=== PATIENT | female | born 1985 | race Caucasian/White ===

== ENCOUNTER → 2016-04-28 | Outpatient (CLI) | payer OTHER | LOC: M OUTALCOH 07:57 | PROVIDERS: ATTEND Psychiatry & Neurology Psychiatry | DX: Z03.89 Encounter for observation for other suspected diseases and conditions ruled out (principal) ==

== ENCOUNTER 2018-05-05 01:14 | Emergency (ER) | payer MEDICAID, SELFPAY ==
[~2018-05-05] VITALS: Ht 177.8 cm; Wt 77.3 kg
[2018-05-05 01:15] VITALS: BP 193/117
[2018-05-05] MEDS ORDERED: PHENobarbital 30 MG TAB PO ONE (02:15)
== END 2018-05-05 03:13 | disposition home or self-care (01) ==
LOC: M ED 01:14
DX: F11.20 Opioid dependence, uncomplicated (principal)

== ENCOUNTER → 2018-08-24 | Outpatient (REF) | payer OTHER, MEDICAID ==
[2018-08-24 21:23] LABS: CHLAMYDIA DNA AMPLIFICATION NEGATIVE (NEGATIVE); GC DNA AMPLIFICATION NEGATIVE (NEGATIVE)
[2018-08-28 00:07] LABS: HPV HYBRID CAPTURE II HI RISK Negative (Negative); HPV HYBRID CAPTURE II LOW RISK Negative (Negative)
== END ==
LOC: M LAB REF 18:49
PROVIDERS: ATTEND Family Medicine Addiction Medicine
DX: Z12.4 Encounter for screening for malignant neoplasm of cervix (principal)

== ENCOUNTER 2018-09-17 13:15 | Inpatient (IN) | payer MEDICAID, OTHER ==
[~2018-09-17] VITALS: Ht 177.8 cm; Wt 95.6 kg
[2018-09-17 13:47] LABS: HEMATOCRIT 40.6 % (36.0-47.0); HEMOGLOBIN 13.7 g/dl (12.0-15.5); MEAN CORPUSCULAR HGB CONC 33.7 g/dl (32.0-36.5); MEAN CORPUSCULAR VOLUME 97.8 fl (80.0-96.0); PLATELET COUNT, AUTOMATED 302 10^3/uL (150-450); RED BLOOD COUNT 4.15 10^6/uL (4.00-5.40); WHITE BLOOD COUNT 5.3 10^3/uL (4.0-10.0)
[2018-09-17 14:17] LABS: HCG, SERUM QUALITATIVE NEGATIVE (NEGATIVE)
[2018-09-17 14:23] LABS: ACETAMINOPHEN LEVEL < 2.0 UG/ML (10.0-30.0); ALBUMIN 3.5 GM/DL (3.2-5.2); ALT/SGPT 22 U/L (12-78); BILIRUBIN,DIRECT 0.1 MG/DL (0.0-0.2); BILIRUBIN,TOTAL 0.3 MG/DL (0.2-1.0); BLOOD UREA NITROGEN 16 MG/DL (7-18); CALCIUM LEVEL 9.4 MG/DL (8.5-10.1); CARBON DIOXIDE LEVEL 28 MEQ/L (21-32); CHLORIDE LEVEL 112 MEQ/L (98-107); CREATININE FOR GFR 1.04 MG/DL (0.55-1.30); ETHYL ALCOHOL (ETHANOL) < 0.003 % (0.000-0.010); GLOMERULAR FILTRATION RATE > 60.0 (>60); GLUCOSE, FASTING 97 MG/DL (70-100); SALICYLATE LEVEL 4.1 MG/DL (5.0-30.0); SODIUM LEVEL 144 MEQ/L (136-145); THYROID STIMULATING HORMONE 0.679 uIU/ML (0.358-3.740); TOTAL PROTEIN 7.9 GM/DL (6.4-8.2)
[2018-09-17 15:15] LABS: AMPHETAMINES LEVEL URINE NEGATIVE (NEGATIVE); BARBITURATES URINE NEGATIVE (NEGATIVE); BENZODIAZEPINES URINE NEGATIVE (NEGATIVE); CANNABINOIDS URINE POSITIVE (NEGATIVE); COCAINE METABOLITE URINE NEGATIVE (NEGATIVE); METHADONE URINE NEGATIVE (NEGATIVE); OPIATES URINE POSITIVE (NEGATIVE); PHENCYCLIDINE URINE NEGATIVE (NEGATIVE)
[2018-09-17] MEDS ORDERED: traZODone 50 MG TAB PO PRN (16:30)
[2018-09-17] MEDS ORDERED: MOM 30ML SUSPENSION UDC PO PRN (16:30)
[2018-09-17] MEDS ORDERED: MAALOX 30 ML SUSP *UDC PO PRN (16:30)
[2018-09-17] MEDS ORDERED: LISI-672 PO (16:38)
[2018-09-17] MEDS ORDERED: REME15TA PO (16:38)
[2018-09-17] MEDS ORDERED: SERT-155 PO (16:38)
[2018-09-17] MEDS ORDERED: TRAZ1TAB14 PO (16:38)
[2018-09-17] MEDS ORDERED: BUSP10TA PO (16:38)
[2018-09-17] MEDS ORDERED: NARC1SPR (16:38)
[2018-09-17 17:37] VITALS: BP 156/106
[2018-09-17] MEDS: ACETAMINOPHEN TAB 650MG DOSE (2X325MG) PO PRN (20:40)
[2018-09-17] MEDS: hydrOXYzine 50 MG TAB PO PRN (21:54)
[2018-09-18 07:03] VITALS: BP 140/86
[2018-09-18] MEDS: ACETAMINOPHEN TAB 650MG DOSE (2X325MG) PO PRN ×2 (08:36→15:15)
[2018-09-18] MEDS: NICOTINE 7 MG/24 HR TRANSDERMAL TD SCH (08:36)
--- NOTE | 2018-09-18 10:47 | HPEPDOC ---
General Date of Admission Sep 17, 2018 at 16:22 Date of Service: Sep 18, 2018 Attending Physician: ANASTASIYA ORELLANA MD Chief Complaint The patient is a 33-year-old female admitted with a reason for visit of Depressive Disorder Substance Abuse. History of Present Illness Patient is a 33-year-old female, admitted on account of acute depressive episode and polysubstance abuse. Prior to presentation for admission, patient had tried to overdose on heroine 2 days ago. had used Narcan on her. Patient has a prior medical history significant for hypertension, controlled by lisinopril. She is uncertain of the dosage. She denies any chest pain, abdominal pain, cough, chest pain, shortness of breath. Home Medications Scheduled Buspirone HCl (Buspirone HCl) 10 Mg Tablet, 10 MG PO TID, (Reported) Lisinopril (Lisinopril) 30 Mg Tablet, 30 MG PO DAILY, (Reported) Mirtazapine (Remeron) 15 Mg Tablet, 15 MG PO QHS, (Reported) Naloxone HCl (Narcan) 4 Mg [place], 4 MG NA ONCE, (Reported) Sertraline HCl (Sertraline HCl) 50 Mg Tablet, 50 MG PO DAILY, (Reported) Trazodone HCl (Trazodone HCl) 150 Mg Tablet, 150 MG PO QHS, (Reported) Allergies Coded Allergies: No Known Allergies (Unverified , 05/05/18) Past Medical History Medical History Hypertension. Suicidal ideation. Depression. Polysubstance abuse Surgical History Cholecystectomy Tonsils and adenoid removal Tubal ligation Family History Father: Diabetes mellitus, hyperlipidemia, hypertension, Parkinson's disease Mother: Diabetes mellitus, hyperlipidemia Social History Smokes half a pack of cigarettes a day, denies alcohol abuse, polysubstance abuse with opiates and THC A-FIB/CHADSVASC A-FIB History Current/History of A-Fib/PAF?: No Current PO Anticoag Therapy: No Review of Systems Other systems A 10 point pertinent review of systems was completed, negative except as stated in the history of presenting illness. Physical Examination Other physical findings GENERAL: NAD SKIN : Warm, dry intact HEENT: Atraumatic, normocephalic, PERRL, moist mucous membrane CARDIOVASCULAR: Regular rate and rhythm, S1S2, no JVD, no edema, distal pulses + and palpable RESP: CTAB, no accessory muscle use noted ABDOMEN: BS+ non distended non tender MS: no joint deformities NEURO: Alert and oriented x 3, CN2-12 grossly intact PSYCH: no anxiety or agitation, appropriate mood and affect. Vital Signs Vital Signs Date Time Temp Pulse Resp B/P (MAP) Pulse Ox O2 Delivery O2 Flow Rate FiO2 09/18/18 07:03 96.7 72 14 140/86 (104) 09/17/18 17:37 98 09/17/18 16:12 Room Air Laboratory Data Labs 24H Laboratory Tests 2 09/17/18 13:19: Urine Amphetamines Screen NEGATIVE, Urine Benzodiazepines Screen NEGATIVE, Urine Opiates Screen POSITIVEH, Urine Methadone Screen NEGATIVE, Urine Barbiturates Screen NEGATIVE, Urine Phencyclidine Screen NEGATIVE, Urine Cocaine Metabolite Screen NEGATIVE, Urine Cannabinoids Screen POSITIVEH 09/17/18 13:34: Nucleated Red Blood Cells % (auto) 0.0, Anion Gap 4L, Glomerular Filtration Rate > 60.0, Calcium Level 9.4, Aspartate Amino Transf (AST/SGOT) 13, Alanine Aminotransferase (ALT/SGPT) 22, Alkaline Phosphatase 101, Total Bilirubin 0.3, Direct Bilirubin 0.1, Total Protein 7.9, Albumin 3.5, Albumin/Globulin Ratio 0.80L, Thyroid Stimulating Hormone (TSH) 0.679, Human Chorionic Gonadotropin, Qual NEGATIVE, Salicylates Level 4.1L, Acetaminophen Level < 2.0L, Ethyl Alcohol Level < 0.003 CBC/BMP Laboratory Tests 09/17/18 13:34 Red Blood Count 4.15, Mean Corpuscular Volume 97.8 H, Mean Corpuscular Hemogl obin 33.0, Mean Corpuscular Hemoglobin Concent 33.7, Red Cell Distribution Width 14.4 Assessment/Plan Hypertension Suicidal ideation Depression. Polysubstance abuse Nicotine dependence PLAN Restart patient on lisinopril for control of blood pressure. At this time patient has no medical problems requiring active follow-up and management. Reconsult medical team as needed Plan / VTE VTE Prophylaxis Ordered?: No VTE Exclusion Mechanical Proph: Low Risk for VTE ANDREA MATHIS [employer] AND [employer] CRAFTSMAN Sep 18, 2018 10:47
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
[2018-09-18 12:09] VITALS: BP 150/98
[2018-09-18] MEDS: SERTRALINE 100 MG TAB PO SCH (12:11)
[2018-09-18] MEDS: LISINOPRIL 10 MG TAB PO SCH (12:12)
[2018-09-18] MEDS: busPIRone 10 MG TAB PO SCH ×3 (12:12→21:34)
[2018-09-18] MEDS: hydrOXYzine 50 MG TAB PO PRN (16:45)
[2018-09-18 18:00] VITALS: BP 132/84
[2018-09-18] MEDS: MIRTAZAPINE 15 MG TAB PO SCH (21:33)
[2018-09-18] MEDS: traZODone 50 MG TAB PO SCH (21:34)
[2018-09-19 06:44] VITALS: BP 132/84
[2018-09-19] MEDS: NICOTINE 7 MG/24 HR TRANSDERMAL TD SCH (08:08)
[2018-09-19] MEDS: busPIRone 10 MG TAB PO SCH ×3 (08:08→20:20)
[2018-09-19] MEDS: SERTRALINE 100 MG TAB PO SCH (08:08)
[2018-09-19] MEDS: LISINOPRIL 10 MG TAB PO SCH (08:08)
[2018-09-19] MEDS: ACETAMINOPHEN TAB 650MG DOSE (2X325MG) PO PRN ×2 (08:09→15:47)
[2018-09-19] MEDS ORDERED: LISINOPRIL 10 MG TAB PO SCH (09:00)
[2018-09-19] MEDS ORDERED: LISINOPRIL 5 MG TAB PO SCH (09:00)
[2018-09-19] MEDS: hydrOXYzine 50 MG TAB PO PRN (11:45)
--- NOTE | 2018-09-19 14:39 | MHIPNPDOC ---
[facility] Progress Note Progress Note DATE OF SERVICE: 09/19/18 HISTORY: 33-year-old female being treated for depression, anxiety and complaints of back pain. VITAL SIGNS: See below. NEW TEST RESULTS: None. CURRENT MEDICATIONS: See below. MENTAL STATUS EXAMINATION: Patient is a 33-year old female, who is . Presently presenting with anxiety, dep ression, who made an overdose on heroin due to her depression. She has been, according to her not taking any drugs since June Speech: Is normal. Language skills are, intact. Thought processes including:. Denies hallucinations, delusions, obsessions, compulsions, phobias. Thought content: Above. Abstract reasoning, and computation:, Able to abstract. Description of associations:. No loose associations. Description of abnormal or psychotic thoughts:. No abnormal or psychotic thought. Judgment:. Fair. Insight:, Fair. Orientation: Oriented 3. Recent and remote memory:, Intact. Attention span and concentration:. No abnormalities. Language: As above. Fund of knowledge:. Full. Mood: Anxious. Affect:, Congruent. DIAGNOSES: 1.. Depression/anxiety. 2., Opiate dependence abuse treated in rehabilitation. 3. Back pain. ASSESSMENT: Above MANAGEMENT PLAN:. Continue to treat for depression and evaluate whether patient needs more rehabilitation for drug use. TIME SPENT:, 35 minutes. Vital Signs Vital Signs Date Time Temp Pulse Resp B/P (MAP) Pulse Ox O2 Delivery O2 Flow Rate FiO2 09/19/18 08:08 130/94 09/19/18 06:44 99.7 57 18 09/17/18 17:37 98 09/17/18 16:12 Room Air Current Medications Current Medications Acetaminophen (Tylenol Tab) 650 mg Q6HP PRN PO HEADACHE or DISCOMFORT Last administered on 09/19/18at 08:09; Start 09/17/18 at 16:30 Al Hydrox/Mg Hydrox/Simethicone (Mylanta) 30 ml Q4HP PRN PO HEARTBURN /INDIGESTION; Start 09/17/18 at 16:30 Buspirone HCl (Buspar) 20 mg TID PO Last administered on 09/19/18at 08:08; Start 09/18/18 at 09:00 Home Med (Med Rec Complete!) ASDIRECTED XX ; Start 09/17/18 at 16:45; Stop 09/17/18 at 16:45; Status DC Hydroxyzine HCl (Atarax) 50 mg Q4HP PRN PO ANXIETY Last administered on 09/19/18 11:45; Start 09/17/18 at 21:30 Lisinopril (Prinivil) 5 mg DAILY PO ; Start 09/19/18 at 09:00; Stop 09/19/18 at 09:00; Status DC Lisinopril (Prinivil) 30 mg DAILY PO Last administered on 09/19/18at 08:08; Start 09/18/18 at 11:30 Lisinopril (Prinivil) 30 mg DAILY PO ; Start 09/19/18 at 09:00; Stop 09/19/18 at 09:00; Status DC Magnesium Hydroxide (Milk Of Magnesia) 30 ml DAILYPRN PRN PO CONSTIPATION; Start 09/17/18 at 16:30 Mirtazapine (Remeron) 15 mg QHS PO Last administered on 09/18/18at 21:33; Start 09/18/18 at 21:00 Nicotine (Nicoderm Cq 7 Mg) 1 patch DAILY TD Last administered on 09/19/18at 08:08; Start 09/18/18 at 09:00 Sertraline HCl (Zoloft) 100 mg DAILY PO Last administered on 09/19/18at 08:08; Start 09/18/18 at 09:00 Trazodone HCl (Desyrel) 50 mg QHSP PRN PO INSOMNIA Last administered on 09/17/18at 20:40; Start 09/17/18 at 16:30; Stop 09/18/18 at 11:20; Status DC Trazodone HCl (Desyrel) 150 mg QHS PO Last administered on 09/18/18at 21:34; Start 09/18/18 at 21:00 Allergies Coded Allergies: No Known Allergies (Unverified , 05/05/18) JOSPEH YAO MD Sep 19, 2018 14:39
[2018-09-19] MEDS: hydrOXYzine 50 MG TAB PO SCH ×2 (15:47→20:20)
[2018-09-19 18:00] VITALS: BP 130/80
[2018-09-19] MEDS ORDERED: KETOROLAC 30 MG/ML VIAL (J1885) IM ONE (19:00)
[2018-09-19] MEDS: MIRTAZAPINE 15 MG TAB PO SCH (20:20)
[2018-09-19] MEDS: traZODone 50 MG TAB PO SCH (20:20)
[2018-09-20] MEDS: hydrOXYzine 50 MG TAB PO SCH ×4 (04:00→23:04)
[2018-09-20 06:12] VITALS: BP 130/80
[2018-09-20] MEDS: LISINOPRIL 10 MG TAB PO SCH (08:31)
[2018-09-20] MEDS: SERTRALINE 100 MG TAB PO SCH (08:31)
[2018-09-20] MEDS: ACETAMINOPHEN TAB 650MG DOSE (2X325MG) PO PRN (08:31)
[2018-09-20] MEDS: busPIRone 10 MG TAB PO SCH ×3 (08:31→20:26)
[2018-09-20] MEDS: NICOTINE 7 MG/24 HR TRANSDERMAL TD SCH (08:32)
[2018-09-20] MEDS ORDERED: hydrOXYzine 50 MG TAB PO PRN (13:00)
[2018-09-20] MEDS ORDERED: IBUPROFEN 800 MG TAB PO PRN (13:45)
[2018-09-20] MEDS ORDERED: CYCLOBENZAPRINE 5MG TABLET PO PRN (13:45)
--- NOTE | 2018-09-20 16:26 | MHIPNPDOC ---
[facility] Progress Note Progress Note DATE OF SERVICE: 09/20/18 HISTORY: HISTORY OF THE PRESENT ILLNESS: Patient is a 33 -year-old , female, who who states, "I attempt to kill myself." Patient states I don't want to live. She stated she states she saw a doctor Burak at the [facility], and that she has been on Zoloft, BuSpar, Atarax, lisinopril and trazodone and mirtazapine. She states she had not improved and "they did nothing for me". Patient tried 3 days ago to overdose on heroin. gave her Narcan, which brought her back since June. Patient has been sober having come out of rehabilitation. After she overdosed her children were taken away from her. They are 1917 and 14. In the past. Patient has used Celexa. She. She was in rehabilitation from May to June. Her medical history is negative surgical history is positive for gallbladder removal tonsils and adenoids and tubal ligation. She has no legal problems except that her children are now with CPS. Her neurological history is negative. She has a 10th grade education. She has a [employer] license but it has lapsed. Her who used to work as a it administrative assistant and did repairs at [place] is now unemployed. Her family history is positive that her mother had used drugs. Her alcohol history is negative. Her drug history is positive for heroin and marijuana. She denies hallucinations, delusions, obsessions, compulsions or phobias. VITAL SIGNS: See below. NEW TEST RESULTS: See below. CURRENT MEDICATIONS: See below. MENTAL STATUS EXAMINATION: Speech: normal. Language skills: intact. Thought processes including: Denies hallucinations, delusions, obsessions, compulsions, phobias. Thought content: Above. Abstract reasoning, and computation: Able to abstract. Description of associations: No loose associations. Description of abnormal or psychotic thoughts: No abnormal or psychotic thought. Judgment: Fair. Insight: Fair. Orientation: Oriented 3. Recent and remote memory: Intact. Attention span and concentration: No abnormalities. Language: As above. Fund of knowledge: Full. Mood: Anxious. Affect: Congruent. DIAGNOSES: 1. Depression/anxiety. 2. Opiate dependence abuse treated in rehabilitation. 3. Back pain. ASSESSMENT: Patient says she overdosed on heroin because she was told that she needed to attempt suicide in order to be committed. We told her this was not the case. Patient says her medications were not high enough and they were not working for her. She says she tried telling her therapists however, the message never got passed along to the prescribing provider so she did what she thought would get her help. She is denying any thoughts of harming herself today. She only complains of the back pain, which she is getting a C, T, and L spine MRI to night. She says she has been sober since June and this relapse was only as a way to get inpatient treatment and that she has no cravings or any plans to continue using drugs upon discharge. MANAGEMENT PLAN: Patient will receive a dose of toradol prior to MRIs. Patient will also start gabapentin 300 mg TID for neuropathic pain. Renal functions will be assessed tomorrow morning. Continue medications and group therapy. TIME SPENT: 30 minutes. Vital Signs Vital Signs Date Time Temp Pulse Resp B/P (MAP) Pulse Ox O2 Delivery O2 Flow Rate FiO2 09/20/18 08:31 150/90 09/20/18 06:12 98.6 63 16 09/17/18 17:37 98 09/17/18 16:12 Room Air Current Medications Current Medications Acetaminophen (Tylenol Tab) 650 mg Q6HP PRN PO HEADACHE or DISCOMFORT Last administered on 09/20/18at 08:31; Start 09/17/18 at 16:30 Al Hydrox/Mg Hydrox/Simethicone (Mylanta) 30 ml Q4HP PRN PO HEARTBURN/INDIGESTION; Start 09/17/18 at 16:30 Buspirone HCl (Buspar) 20 mg TID PO Last administered on 09/20/18at 16:13; Start 09/18/18 at 09:00 Cyclobenzaprine HCl (Flexeril) 5 mg Q6HP PRN PO SPASMS Last administered on 09/20/18at 14:38; Start 09/20/18 at 13:45 Gabapentin (Neurontin) 300 mg TID PO ; Start 09/20/18 at 16:00; Status UNV Home Med (Med Rec Complete!) ASDIRECTED XX ; Start 09/17/18 at 16:45; Stop 09/17/18 at 16:45; Status DC Hydroxyzine HCl (Atarax) 50 mg Q4H PO Last administered on 09/20/18 08:31; Start 09/19/18 at 16:00; Stop 09/20/18 at 12:56; Status DC Hydroxyzine HCl (Atarax) 50 mg Q4HP PRN PO ANXIETY Last administered on at 11:45; Start 09/17/18 at 21:30; Stop 09/19/18 at 14:40; Status DC Hydroxyzine HCl (Atarax) 50 mg Q4HP PRN PO ANXIETY; Start 09/20/18 at 13:00 Ibuprofen (Advil) 800 mg Q8HP PRN PO MODERATE PAIN (PS 5-7) Last administered on 09/20/18at 14:38; Start 09/20/18 at 13:45; Status Future hold Lisinopril (Prinivil) 5 mg DAILY PO ; Start 09/19/18 at 09:00; Stop 09/19/18 at 09:00; Status DC Lisinopril (Prinivil) 30 mg DAILY PO Last administered on 09/20/18at 08:31; Start 09/18/18 at 11:30 Lisinopril (Prinivil) 30 mg DAILY PO ; Start 09/19/18 at 09:00; Stop 09/19/18 at 09:00; Status DC Magnesium Hydroxide (Milk Of Magnesia) 30 ml DAILYPRN PRN PO CONSTIPATION; Start 09/17/18 at 16:30 Mirtazapine (Remeron) 15 mg QHS PO Last administered on 09/19/18at 20:20; Start 09/18/18 at 21:00 Nicotine (Nicoderm Cq 7 Mg) 1 patch DAILY TD Last administered on 09/20/18at 08:32; Start 09/18/18 at 09:00 Sertraline HCl (Zoloft) 100 mg DAILY PO Last administered on 09/20/18at 08:31; Start 09/18/18 at 09:00 Trazodone HCl (Desyrel) 50 mg QHSP PRN PO INSOMNIA Last administered on 09/17/18at 20:40; Start 09/17/18 at 16:30; Stop 09/18/18 at 11:20; Status DC Trazodone HCl (Desyrel) 150 mg QHS PO Last administered on 09/19/18at 20:20; Start 09/18/18 at 21:00 Allergies Coded Allergies: No Known Allergies (Unverified , 05/05/18) GME ATTESTATION GME ATTESTATION My faculty preceptor for this patient encounter was physically present during the encounter and was fully available. All aspects of the patient interview, examination, medical decision making process, and medical care plan development were reviewed and approved by the faculty preceptor. The faculty preceptor is aware and concurs with the plan as stated in the body of this note and will attest to such by his/her cosignature. YOLANDA WEINBERG DO Sep 20, 2018 16:26
[2018-09-20] MEDS: GABAPENTIN 300 MG CAP PO SCH ×2 (17:01→20:25)
[2018-09-20 18:16] VITALS: BP 150/90
[2018-09-20] MEDS ORDERED: KETOROLAC 30 MG/ML VIAL (J1885) IM ONE (21:19)
[2018-09-20] MEDS ORDERED: PROHANCE 279.3MG/ML 5ML VIAL (A9576) As Ordered ONE (23:12)
[2018-09-20] MEDS ORDERED: PROHANCE 279.3MG/ML 15ML VIAL (A9576) As Ordered ONE (23:12)
[2018-09-21] MEDS: MIRTAZAPINE 15 MG TAB PO SCH ×2 (00:05→22:52)
[2018-09-21] MEDS: traZODone 50 MG TAB PO SCH ×2 (00:05→22:53)
--- NOTE | 2018-09-21 01:01 | REPVR ---
EXAM: MR Cervical Spine Without and With Contrast EXAM DATE/TIME: 09/20/2018 11:25 PM CLINICAL HISTORY: 33 years old, female; Neck pain; Patient HX: HX SUBSTANCE ABUSE, CHRONIC PAIN IN ENTIRE SPINE NKI; Additional Info: R/O abscess TECHNIQUE: Imaging protocol: Multiplanar magnetic resonance images of the cervical spine without and with intravenous contrast. Contrast material: PROHANCE; Contrast volume: 19 ml; Contrast route: 23 G BUTTERFLY; COMPARISON: No relevant prior studies available. FINDINGS: Limitations: Examination is limited by motion artifact. Vertebrae: Unremarkable. No abnormal enhancing lesions. No suspicious lesions. Spinal cord: Normal signal. No cord compression. C2-C3: No significant disc disease. No significant spinal stenosis. C3-C4: No significant disc disease. No significant spinal stenosis. C4-C5: No significant disc disease. No significant spinal stenosis. C5-C6: No significant disc disease. No significant spinal stenosis. C6-C7: No significant disc disease. No significant spinal stenosis. C7-T1: No significant disc disease. No significant spinal stenosis. Soft tissues: Unremarkable. No abnormal enhancing lesions. IMPRESSION: 1. Limited by motion. 3. No evidence of abscess. Electronically signed by: Keeley Hernandez On 09/21/2018 01:00:47 AM
--- NOTE | 2018-09-21 01:02 | REPVR ---
EXAM: MR Thoracic Spine Without and With Contrast EXAM DATE/TIME: 09/20/2018 11:25 PM CLINICAL HISTORY: 33 years old, female; Pain in thoracic spine; Without myelpathy or radiculopathy; Patient HX: HX SUBSTANCE ABUSE, CHRONIC PAIN IN ENTIRE SPINE NKI; Additional Info: R/O abscess TECHNIQUE: Imaging protocol: Multiplanar magnetic resonance images of the thoracic spine without and with intravenous contrast. Contrast material: PROHANCE; Contrast volume: 19 ml; Contrast route: 23G BUTTERFLY; COMPARISON: CR Spine, Thoracic 3 VIEWS 09/20/2013 7:44 PM FINDINGS: Limitations: Examination is limited by motion artifact. Vertebrae: Unremarkable. No abnormal enhancing lesion. Spinal cord: Cord is not well evaluated on the sagittal T2-weighted images. No cord compression. T1-T2: No significant disc disease. No significant spinal stenosis. T2-T3: No significant disc disease. No significant spinal stenosis. T3-T4: No significant disc disease. No significant spinal stenosis. T4-T5: No significant disc disease. No significant spinal stenosis. T5-T6: No significant disc disease. No significant spinal stenosis. T6-T7: No significant disc disease. No significant spinal stenosis. T7-T8: No significant disc disease. No significant spinal stenosis. T8-T9: No significant disc disease. No significant spinal stenosis. T9-T10: No significant disc disease. No significant spinal stenosis. T10-T11: No significant disc disease. No significant spinal stenosis. T11-T12: No significant disc disease. No significant spinal stenosis. Soft tissues: Unremarkable. No abnormal enhancing lesion. IMPRESSION: 1. Limited by motion. 2. No evidence of abscess. Electronically signed by: Keeley Hernandez On 09/21/2018 01:02:19 AM
--- NOTE | 2018-09-21 01:08 | REPVR ---
EXAM: MR Lumbar Spine Without and With Contrast. EXAM DATE/TIME: 09/20/2018 11:25 PM CLINICAL HISTORY: 33 years old, female; Low back pain; Patient HX: HX SUBSTANCE ABUSE, CHRONIC PAIN IN ENTIRE SPINE NKI; Additional Info: R/O abscess TECHNIQUE: Imaging protocol: Multiplanar magnetic resonance images of the lumbar spine without and with intravenous contrast. Contrast material: PROHANCE; Contrast volume: 19 ml; Contrast route: 23G BUTTERFLY; COMPARISON: CR Spine. Lumbosacral, complete 07/06/2013 6:09 PM FINDINGS: Limitations: Examination is limited by motion artifact. Postcontrast images are particularly suboptimal. Vertebrae: Unremarkable. No abnormal enhancing lesions in the vertebra. Mild degenerative changes at the anterior superior corner of L2 and L3. 8mm T2 hyperintense lesion in the L1 vertebral body on the left which partially suppresses on fat-sat images. 5 mm in hemangioma in the L2 vertebral body on the left. Spinal cord: Conus medullaris terminates at L1. No cord compression or compression of the cauda equina. L1-L2: No significant disc disease. No significant spinal stenosis. L2-L3: No significant disc disease. No significant spinal stenosis. L3-L4: No significant disc disease. No significant spinal stenosis. L4-L5: No significant disc disease. No significant spinal stenosis. L5-S1: No significant disc disease. No significant spinal stenosis. Soft tissues: There is dependent subcutaneous edema. No abnormal enhancing lesions in the soft tissue. IMPRESSION: 1. Limited somewhat by motion. 2. No evidence of abscess. 3. Likely hemangiomas in the L1 and L2 vertebral bodies. Electronically signed by: Keeley Hernandez On 09/21/2018 01:08:21 AM
[2018-09-21 06:35] VITALS: BP 138/80
[2018-09-21 07:58] LABS: ALBUMIN 3.4 GM/DL (3.2-5.2); ALT/SGPT 15 U/L (12-78); BILIRUBIN,TOTAL 0.4 MG/DL (0.2-1.0); BLOOD UREA NITROGEN 19 MG/DL (7-18); CALCIUM LEVEL 8.9 MG/DL (8.5-10.1); CARBON DIOXIDE LEVEL 26 MEQ/L (21-32); CHLORIDE LEVEL 113 MEQ/L (98-107); CREATININE FOR GFR 1.08 MG/DL (0.55-1.30); GLOMERULAR FILTRATION RATE > 60.0 (>60); GLUCOSE, FASTING 84 MG/DL (70-100); POTASSIUM SERUM 4.3 MEQ/L (3.5-5.1); SODIUM LEVEL 143 MEQ/L (136-145); TOTAL PROTEIN 6.9 GM/DL (6.4-8.2)
[2018-09-21] MEDS: SERTRALINE 100 MG TAB PO SCH (08:21)
[2018-09-21] MEDS: GABAPENTIN 300 MG CAP PO SCH ×2 (08:21→15:01)
[2018-09-21] MEDS: busPIRone 10 MG TAB PO SCH ×3 (08:21→20:09)
[2018-09-21] MEDS: NICOTINE 7 MG/24 HR TRANSDERMAL TD SCH (08:21)
[2018-09-21] MEDS: LISINOPRIL 10 MG TAB PO SCH (08:21)
--- NOTE | 2018-09-21 10:25 | IPNPDOC ---
Subjective Date Seen The patient was seen on 09/21/18. Subjective Chief Complaint/HPI Admitted to inpatient psych for acute depression with suicidal ideation Events since last encounter MRI findings discussed with her. Negative for acute process to explain severe pain complaints patient has had Objective Physical Examination Other physical findings GENERAL: NAD SKIN : Warm, dry intact HEENT: Atraumatic, normocephalic, PERRL, moist mucous membrane CARDIOVASCULAR: Regular rate and rhythm, S1S2, no JVD, no edema, distal pulses + and palpable RESP: CTAB, no accessory muscle use noted ABDOMEN: BS+ non distended non tender MS: no joint deformities NEURO: Alert and oriented x 3, CN2-12 grossly intact PSYCH: no anxiety or agitation, appropriate mood and affect. Assessment /Plan Assessment Low Back Pain -MRI spine negative for acute vertebral or paravertebral process -will discontinue all NSAIDS and order Lidoderm patch to back -MRI findings discussed with patient Plan/VTE VTE Prophylaxis Ordered?: No VTE Exclusion Mechanical Proph: Low Risk for VTE VS, I&O, 24H, Fishbone Vital Signs/I&O Vital Signs Date Time Temp Pulse Resp B/P (MAP) Pulse Ox O2 Delivery O2 Flow Rate FiO2 09/21/18 08:21 146/88 09/21/18 06:35 98.2 79 16 09/17/18 17:37 98 09/17/18 16:12 Room Air Laboratory Data 24H LABS Laboratory Tests 2 09/21/18 07:14: Anion Gap 4L, Glomerular Filtration Rate > 60.0, Blood Urea Nitrogen 19H, Creatinine 1.08, Sodium Level 143, Potassium Level 4.3, Chloride Level 113H, Carbon Dioxide Level 26, Calcium Level 8.9, Aspartate Amino Transf (AST/SGOT) 8, Alanine Aminotransferase (ALT/SGPT) 15, Alkaline Phosphatase 85, Total Bilirubin 0.4, Total Protein 6.9, Albumin 3.4, Albumin/Globulin Ratio 0.97L CBC/BMP Laboratory Tests 09/21/18 07:14 Calcium Level 8.9, Aspartate Amino Transf (AST/SGOT) 8, Alanine Aminotransferase (ALT/SGPT) 15, Alkaline Phosphatase 85, Total Bilirubin 0.4, Total Protein 6.9, Albumin 3.4 ANDREA MATHIS Sep 21, 2018 10:25
[2018-09-21] MEDS: LIDOCAINE 5% (LIDODERM) PATCH TD SCH (11:05)
--- NOTE | 2018-09-21 16:04 | MHIPNPDOC ---
[facility] [place] Progress Note Progress Note DATE OF SERVICE: 09/21/18 HISTORY: HISTORY OF THE PRESENT ILLNESS: Patient is a 33 -year-old , female, who who states, "I attempt to kill myself." Patient states I don't want to live. She stated she states she saw a doctor Burak at the [facility], and that she has been on Zoloft, BuSpar, Atarax, lisinopril and trazodone and mirtazapine. She states she had not improved and "they did nothing for me". Patient tried 3 days ago to overdose on heroin. gave her Narcan, which brought her back since June. Patient has been sober having come out of rehabilitation. After she overdosed her children were taken away from her. They are 1917 and 14. In the past. Patient has used Celexa. She. She was in rehabilitation from May to June. Her medical history is negative surgical history is positive for gallbladder removal tonsils and adenoids and tubal ligation. She has no legal problems except that her children are now with CPS. Her neurological history is negative. She has a 10th grade education. She has a [employer] license but it has lapsed. Her who used to work as a assistant distribution manager and did repairs at [employer] is now unemployed. Her family history is positive that her mother had used drugs. Her alcohol history is negative. Her drug history is positive for heroin and marijuana. She denies hallucinations, delusions, obsessions, compulsions or phobias. VITAL SIGNS: See below. NEW TEST RESULTS: her BUN w slightly more elevated, went from 16 to 19. Her MRI results are unremarkable but she has some degenerative changes at L2-L3 and possible hemangiomas (small) between L1-L2 CURRENT MEDICATIONS: See below. MENTAL STATUS EXAMINATION: Speech: normal. Language skills: intact. Thought processes including: Denies hallucinations, delusions, obsessions, compulsions, phobias. Thought content: Above. Abstract reasoning, and computation: Able to abstract. Description of associations: No loose associations. Description of abnormal or psychotic thoughts: No abnormal or psychotic thought. Judgment: Fair. Insight: Fair. Orientation: Oriented 3. Recent and remote memory: Intact. Attention span and concentration: No abnormalities. Language: As above. Fund of knowledge: Full. Mood: Anxious. Affect: Congruent. DIAGNOSES: 1. Depression/anxiety. 2. Opiate dependence abuse treated in rehabilitation. 3. Back pain. ASSESSMENT: The mental status has not changed much from yesterday but she is less anxious because her pain level has decreased. She continues to deny suicidal ideation, homicidal ideation or psychosis. She says she has felt better today because she has taken Gabapentin 300 mgs PO TID and will be increased to 400 mgs PO TID. She says she is going to try doing yoga to strengthen her back muscles. She is still very anxious because of her pain problem and this senior writer spoke to her about the rol that anxiety plays with pain and how pain can increase her anxiety, so, if she starts trying to meditate, take deep breathings, she probably will lower her anxiety levels and her pain levels. She tells me she is homeless, she was living with her brother but can't return there because she overdosed and her children have been taken away for the same reason. Being homeless is stressful for her. MANAGEMENT PLAN: Will continue on the same medications TIME SPENT: 30 minutes. Vital Signs Vital Signs Date Time Temp Pulse Resp B/P (MAP) Pulse Ox O2 Delivery O2 Flow Rate FiO2 09/21/18 08:21 146/88 09/21/18 06:35 98.2 79 16 09/17/18 17:37 98 09/17/18 16:12 Room Air Laboratory Data 24H Labs Laboratory Tests 2 09/21/18 07:14: Anion Gap 4L, Glomerular Filtration Rate > 60.0, Blood Urea Nitrogen 19H, Creatinine 1.08, Sodium Level 143, Potassium Level 4.3, Chloride Level 113H, Carbon Dioxide Level 26, Calcium Level 8.9, Aspartate Amino Transf (AST/SGOT) 8, Alanine Aminotransferase (ALT/SGPT) 15, Alkaline Phosphatase 85, Total Bilirubin 0.4, Total Protein 6.9, Albumin 3.4, Albumin/Globulin Ratio 0.97L CBC/BMP Laboratory Tests 09/21/18 07:14 Calcium Level 8.9, Aspartate Amino Transf (AST/SGOT) 8, Alanine Aminotransferase (ALT/SGPT) 15, Alkaline Phosphatase 85, Total Bilirubin 0.4, Total Protein 6.9, Albumin 3.4 Current Medications Current Medications Acetaminophen (Tylenol Tab) 650 mg Q6HP PRN PO HEADACHE or DISCOMFORT Last administered on 09/20/18at 08:31; Start 09/17/18 at 16:30 Al Hydrox/Mg Hydrox/Simethicone (Mylanta) 30 ml Q4HP PRN PO HEARTBURN/INDIGESTION; Start 09/17/18 at 16:30 Buspirone HCl (Buspar) 20 mg TID PO Last administered on 09/21/18at 15:01; Start 09/18/18 at 09:00 Cyclobenzaprine HCl (Flexeril) 5 mg Q6HP PRN PO SPASMS Last administered on 09/20/18at 14:38; Start 09/20/18 at 13:45 Gabapentin (Neurontin) 300 mg TID PO Last administered on 09/21/18at 15:01; Start 09/20/18 at 16:00 Home Med (Med Rec Complete!) ASDIRECTED XX ; Start 09/17/18 at 16:45; Stop 09/17/18 at 16:45; Status DC Hydroxyzine HCl (Atarax) 50 mg Q4H PO Last administered on 09/20/18at 08:31; Start 09/19/18 at 16:00; Stop 09/20/18 at 12:56; Status DC Hydroxyzine HCl (Atarax) 50 mg Q4HP PRN PO ANXIETY Last administered on 09/19/18at 11:45; Start 09/17/18 at 21:30; Stop 09/19/18 at 14:40; Status DC Hydroxyzine HCl (Atarax) 50 mg Q4HP PRN PO ANXIETY; Start 09/20/18 at 13:00 Ibuprofen (Advil) 800 mg Q8HP PRN PO MODERATE PAIN (PS 5-7) Last administered on 09/20/18at 14:38; Start 09/20/18 at 13:45; Stop 09/21/18 at 10:21; Status DC Lidocaine (Lidoderm Patch) 1 patch DAILY TD Last administered on 09/21/18at 11:05; Start 09/21/18 at 09:00 Lisinopril (Prinivil) 5 mg DAILY PO ; Start 09/19/18 at 09:00; Stop 09/19/18 at 09:00; Status DC Lisinopril (Prinivil) 30 mg DAILY PO Last administered on 09/21/18at 08:21; Start 09/18/18 at 11:30 Lisinopril (Prinivil) 30 mg DAILY PO ; Start 09/19/18 at 09:00; Stop 09/19/18 at 09:00; Status DC Magnesium Hydroxide (Milk Of Magnesia) 30 ml DAILYPRN PRN PO CONSTIPATION; Start 09/17/18 at 16:30 Mirtazapine (Remeron) 15 mg QHS PO Last administered on 09/21/18at 00:05; Start 09/18/18 at 21:00 Nicotine (Nicoderm Cq 7 Mg) 1 patch DAILY TD Last administered on 09/21/18at 08:21; Start 09/18/18 at 09:00 Non-Formulary Medication ( See Comment Field Below ) REMOVE LIDODERM PATCH DAILY@21 XX ; Start 09/21/18 at 21:00 Sertraline HCl (Zoloft) 100 mg DAILY PO Last administered on 09/21/18at 08:21; Start 09/18/18 at 09:00 Trazodone HCl (Desyrel) 50 mg QHSP PRN PO INSOMNIA Last administered on 09/17/18at 20:40; Start 09/17/18 at 16:30; Stop 09/18/18 at 11:20; Status DC Trazodone HCl (Desyrel) 150 mg QHS PO Last administered on 09/21/18at 00:05; Start 09/18/18 at 21:00 Allergies Coded Allergies: No Known Allergies (Unverified , 05/05/18) DINORAH HILTON MD Sep 21, 2018 15:33
[2018-09-21 17:53] VITALS: BP 133/88
[2018-09-21 18:00] VITALS: BP 133/88
[2018-09-21] MEDS: GABAPENTIN 400 MG CAP PO SCH (20:09)
[2018-09-21] MEDS: **NOTE PATIENT COMMENT** MISC XX SCH (21:37)
[2018-09-22 06:44] VITALS: BP 126/87
[2018-09-22] MEDS: SERTRALINE 100 MG TAB PO SCH (08:27)
[2018-09-22] MEDS: LISINOPRIL 10 MG TAB PO SCH (08:27)
[2018-09-22] MEDS: NICOTINE 7 MG/24 HR TRANSDERMAL TD SCH (08:27)
[2018-09-22] MEDS: busPIRone 10 MG TAB PO SCH ×3 (08:27→20:17)
[2018-09-22] MEDS: GABAPENTIN 400 MG CAP PO SCH (08:27)
[2018-09-22] MEDS: LIDOCAINE 5% (LIDODERM) PATCH TD SCH (08:28)
[2018-09-22] MEDS: NALTREXONE 50 MG TAB PO SCH (13:57)
[2018-09-22] MEDS: GABAPENTIN 300 MG CAP PO SCH ×2 (15:10→20:17)
[2018-09-22 18:22] VITALS: BP 139/85
--- NOTE | 2018-09-22 19:12 | MHIPNPDOC ---
[facility] Progress Note Progress Note DATE OF SERVICE: 09/22/18 HISTORY: HISTORY OF THE PRESENT ILLNESS: Patient is a 33 -year-old , female, who who states, "I attempt to kill myself." Patient states I don't want to live. She stated she states she saw a doctor Burak at the [facility], and that she has been on Zoloft, BuSpar, Atarax, lisinopril and trazodone and mirtazapine. She states she had not improved and "they did nothing for me". Patient tried 3 days ago to overdose on heroin. gave her Narcan, which brought her back since June. Patient has been sober having come out of rehabilitation. After she overdosed her children were taken away from her. They are 1917 and 14. In the past. Patient has used Celexa. She. She was in rehabilitation from May to June. Her medical history is negative surgical history is positive for gallbladder removal tonsils and adenoids and tubal ligation. She has no legal problems except that her children are now with CPS. Her neurological history is negative. She has a 10th grade education. 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 Her who used to work as a assistant professor of geography and did repairs at [employer] is now unemployed. Her family history is positive that her mother had used drugs. Her alcohol history is negative. Her drug history is positive for heroin and marijuana. She denies hallucinations, delusions, obsessions, compulsions or phobias. VITAL SIGNS: See below. NEW TEST RESULTS: her BUN w slightly more elevated, went from 16 to 19. Her MRI results are unremarkable but she has some degenerative changes at L2-L3 and possible hemangiomas (small) between L1-L2 CURRENT MEDICATIONS: See below. MENTAL STATUS EXAMINATION: Speech: normal. Language skills: intact. Thought processes including: linear, coherent, goal directed Thought content: She is focused on getting pain medications and anxiolytics, she has cognitive distortions 9negative, anxious/depressive) but denies SI/HI Description of abnormal or psychotic thoughts: No abnormal or psychotic thoughts Judgment: Fair. Insight: Fair. Orientation: Oriented 3. Recent and remote memory: Intact. Attention span and concentration: No abnormalities. Language: As above. Fund of knowledge: Full. Mood: Anxious. Affect: Congruent. DIAGNOSES: 1. Major Depressive disorder, recurrent 2. Generalized anxiety disorder 3. substance abuse 4. R/O cluster B personality disorder ASSESSMENT: the patient was irritable, angry and easily agitated this morning and early afternoon because she was not getting anti anxiety medications. the only thing I did was to increase Gabapentin to 600 mgs PO TID and started her on Revia 50 mgs Po daily that will help her with the cravings. she later daid that's all she wanted, to have something that would take care of the cravings. she is going to be discharged tomorrow MANAGEMENT PLAN: Will continue on the same medications Vital Signs Vital Signs Date Time Temp Pulse Resp B/P (MAP) Pulse Ox O2 Delivery O2 Flow Rate FiO2 09/22/18 18:22 98.0 67 16 139/85 (103) 09/17/18 17:37 98 09/17/18 16:12 Room Air Current Medications Current Medications Acetaminophen (Tylenol Tab) 650 mg Q6HP PRN PO HEADACHE or DISCOMFORT Last administered on 09/20/18at 08:31; Start 09/17/18 at 16:30 Al Hydrox/Mg Hydrox/Simethicone (Mylanta) 30 ml Q4HP PRN PO HEARTBURN/ INDIGESTION; Start 09/17/18 at 16:30 Buspirone HCl (Buspar) 20 mg TID PO Last administered on 09/22/18at 15:10; Start 09/18/18 at 09:00 Cyclobenzaprine HCl (Flexeril) 5 mg Q6HP PRN PO SPASMS Last administered on 09/20/18at 14:38; Start 09/20/18 at 13:45 Gabapentin (Neurontin) 300 mg TID PO Last administered on 09/21/18at 15:01; Start 09/20/18 at 16:00; Stop 09/21/18 at 15:58; Status DC Gabapentin (Neurontin) 400 mg TID PO Last administered on 09/22/18at 08:27; Start 09/21/18 at 21:00; Stop 09/22/18 at 12:34; Status DC Gabapentin (Neurontin) 600 mg TID PO Last administered on 09/22/18at 15:10; Start 09/22/18 at 16:00 Home Med (Med Rec Complete!) ASDIRECTED XX ; Start 09/17/18 at 16:45; Stop 09/17/18 at 16:45; Status DC Hydroxyzine HCl (Atarax) 50 mg Q4H PO Last administered on 09/20/18 08:31; Start 09/19/18 at 16:00; Stop 09/20/18 at 12:56; Status DC Hydroxyzine HCl (Atarax) 50 mg Q4HP PRN PO ANXIETY Last administered on 09/19/18at 11:45; Start 09/17/18 at 21:30; Stop 09/19/18 at 14:40; Status DC Hydroxyzine HCl (Atarax) 50 mg Q4HP PRN PO ANXIETY Last administered on 09/21/18 20:09; Start 09/20/18 at 13:00 Ibuprofen (Advil) 800 mg Q8HP PRN PO MODERATE PAIN (PS 5-7) Last administered on 09/20/18at 14:38; Start 09/20/18 at 13:45; Stop 09/21/18 at 10:21; Status DC Lidocaine (Lidoderm Patch) 1 patch DAILY TD Last administered on 09/21/18 11:05; Start 09/21/18 at 09:00 Lisinopril (Prinivil) 5 mg DAILY PO ; Start 09/19/18 at 09:00; Stop 09/19/18 at 09:00; Status DC Lisinopril (Prinivil) 30 mg DAILY PO Last administered on 09/22/18at 08:27; Start 09/18/18 at 11:30 Lisinopril (Prinivil) 30 mg DAILY PO ; Start 09/19/18 at 09:00; Stop 09/19/18 at 09:00; Status DC Magnesium Hydroxide (Milk Of Magnesia) 30 ml DAILYPRN PRN PO CONSTIPATION; Start 09/17/18 at 16:30 Mirtazapine (Remeron) 15 mg QHS PO Last administered on 09/21/18at 22:52; Start 09/18/18 at 21:00 Naltrexone HCl (Revia) 50 mg DAILY PO Last administered on 09/22/18at 13:57; Start 09/22/18 at 09:00 Nicotine (Nicoderm Cq 7 Mg) 1 patch DAILY TD Last administered on 09/22/18 08:27; Start 09/18/18 at 09:00 Non-Formulary Medication ( See Comment Field Below ) REMOVE LIDODERM PATCH DAILY@21 XX Last administered on 09/21/18at 21:37; Start 09/21/18 at 21:00 Sertraline HCl (Zoloft) 100 mg DAILY PO Last administered on 09/22/18at 08:27; Start 09/18/18 at 09:00 Trazodone HCl (Desyrel) 50 mg QHSP PRN PO INSOMNIA Last administered on 09/17/18at 20:40; Start 09/17/18 at 16:30; Stop 09/18/18 at 11:20; Status DC Trazodone HCl (Desyrel) 150 mg QHS PO Last administered on 09/21/18at 22:53; Start 09/18/18 at 21:00 Allergies Coded Allergies: No Known Allergies (Unverified , 05/05/18) DINORAH HILTON MD Sep 22, 2018 19:12
[2018-09-22] MEDS: **NOTE PATIENT COMMENT** MISC XX SCH (21:00)
[2018-09-22] MEDS: MIRTAZAPINE 15 MG TAB PO SCH (22:54)
[2018-09-22] MEDS: traZODone 50 MG TAB PO SCH (22:54)
[2018-09-23 06:48] VITALS: BP 139/90
[2018-09-23 08:11] VITALS: BP 141/93
[2018-09-23] MEDS: SERTRALINE 100 MG TAB PO SCH (08:11)
[2018-09-23] MEDS: LISINOPRIL 10 MG TAB PO SCH (08:11)
[2018-09-23] MEDS: NALTREXONE 50 MG TAB PO SCH (08:11)
[2018-09-23] MEDS: GABAPENTIN 300 MG CAP PO SCH (08:11)
[2018-09-23] MEDS: busPIRone 10 MG TAB PO SCH (08:12)
[2018-09-23] MEDS: LIDOCAINE 5% (LIDODERM) PATCH TD SCH (08:13)
[2018-09-23] MEDS: NICOTINE 7 MG/24 HR TRANSDERMAL TD SCH (08:13)
[2018-09-23] MEDS ORDERED: SERT-138 PO (11:00)
[2018-09-23] MEDS ORDERED: BUSP10TA PO (11:00)
[2018-09-23] MEDS ORDERED: NICO7PA TD (11:00)
[2018-09-23] MEDS ORDERED: LISI-672 PO (11:00)
[2018-09-23] MEDS ORDERED: LIDO5TD TD (11:00)
[2018-09-23] MEDS ORDERED: REME15TA PO (11:00)
[2018-09-23] MEDS ORDERED: NALT50TA4 PO (11:00)
[2018-09-23] MEDS ORDERED: GABA-843 PO (11:00)
[2018-09-23] MEDS ORDERED: TRAZ1TAB14 PO (11:00)
== END 2018-09-23 12:10 | disposition home or self-care (01) | DRG 751 ==
LOC: M ED 13:15 → M ED INP 16:22 → M PSY 17:30
PROVIDERS: ADMIT Psychiatry & Neurology Child & Adolescent Psychiatry; ATTEND Psychiatry & Neurology Psychiatry
DX: F33.9 Major depressive disorder, recurrent, unspecified (principal); I10 Essential (primary) hypertension; R45.851 Suicidal ideations; F41.1 Generalized anxiety disorder; F60.89 Other specific personality disorders; Z79.899 Other long term (current) drug therapy; F17.210 Nicotine dependence, cigarettes, uncomplicated; M54.5 Low back pain

== ENCOUNTER → 2018-09-24 | Outpatient (CLI) | payer OTHER ==
[~2018-09-24] MED LIST: BUSP10TA PO; GABA-843 PO; LIDO5TD TD; LISI-672 PO; NALT50TA4 PO; NARC1SPR; NICO7PA TD; REME15TA PO; SERT-138 PO; SERT-155 PO; TRAZ1TAB14 PO
== END ==
LOC: M OUTALCOH 08:00
PROVIDERS: ATTEND Psychiatry & Neurology Psychiatry
DX: F11.20 Opioid dependence, uncomplicated (principal); F10.10 Alcohol abuse, uncomplicated

== ENCOUNTER 2018-11-01 08:00 | Outpatient (RCR) | payer OTHER | END 2018-11-03 | LOC: M OUTALCOH 08:00 | PROVIDERS: ATTEND Psychiatry & Neurology Psychiatry | DX: F11.20 Opioid dependence, uncomplicated (principal); F12.10 Cannabis abuse, uncomplicated; F17.200 Nicotine dependence, unspecified, uncomplicated ==

== ENCOUNTER → 2019-04-04 | Outpatient (CLI) | payer OTHER ==
[~2019-04-04] MED LIST changes: -SERT-155 PO; +SERT50TA29 PO
[2019-04-04 11:42] LABS: HEMATOCRIT 41.3 % (36.0-47.0); HEMOGLOBIN 13.1 g/dl (12.0-15.5); MEAN CORPUSCULAR HEMOGLOBIN 29.6 pg (27.0-33.0); MEAN CORPUSCULAR HGB CONC 31.7 g/dl (32.0-36.5); MEAN CORPUSCULAR VOLUME 93.4 fl (80.0-96.0); PLATELET COUNT, AUTOMATED 189 10^3/uL (150-450); RED BLOOD COUNT 4.42 10^6/uL (4.00-5.40); WHITE BLOOD COUNT 5.2 10^3/uL (4.0-10.0)
[2019-04-04 12:09] LABS: ALBUMIN 3.5 GM/DL (3.2-5.2); ALT/SGPT 14 U/L (12-78); BILIRUBIN,TOTAL 0.4 MG/DL (0.2-1.0); BLOOD UREA NITROGEN 13 MG/DL (7-18); CARBON DIOXIDE LEVEL 28 MEQ/L (21-32); CHLORIDE LEVEL 110 MEQ/L (98-107); CREATININE FOR GFR 0.96 MG/DL (0.55-1.30); GLOMERULAR FILTRATION RATE > 60.0 (>60); GLUCOSE, FASTING 98 MG/DL (70-100); POTASSIUM SERUM 3.6 MEQ/L (3.5-5.1); SODIUM LEVEL 143 MEQ/L (136-145); TOTAL PROTEIN 7.5 GM/DL (6.4-8.2)
[2019-04-04 12:11] LABS: HCG, SERUM QUALITATIVE NEGATIVE (NEGATIVE)
[2019-04-04 12:30] LABS: HEPATITIS B SURFACE ANTIGEN NEGATIVE (NEGATIVE)
[2019-04-04 12:58] LABS: HEPATITIS C VIRUS ABY INDEX 0.2 INDEX (<0.8); HIV 1&2 SCREEN CENTAUR NEGATIVE (NEGATIVE)
[2019-04-04 14:24] LABS: CHLAMYDIA DNA AMPLIFICATION NEGATIVE (NEGATIVE); GC DNA AMPLIFICATION NEGATIVE (NEGATIVE)
--- NOTE | 2019-04-05 07:03 | ECGEPIP ---
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
== END ==
LOC: M LAB 10:51
PROVIDERS: ATTEND Family Medicine
DX: F11.20 Opioid dependence, uncomplicated (principal)

== ENCOUNTER → 2024-03-02 | Outpatient (REF) | payer OTHER ==
[~2024-03-02] MED LIST changes: +GABA-1172 PO; -GABA-843 PO; -LISI-672 PO; +LISI30TA4 PO; +MIRT-88 PO; -REME15TA PO
[2024-03-02 12:26] LABS: ALBUMIN 3.5 G/DL (3.2-5.2); ALKALINE PHOSPHATASE 134 U/L (35-104); ALT/SGPT 17 U/L (7.0-40); AST/SGOT 10 U/L (<34); BILIRUBIN,TOTAL 0.5 MG/DL (0.3-1.2); BLOOD UREA NITROGEN 16 MG/DL (9-23); CARBON DIOXIDE LEVEL 29 MMOL/L (20-31); CHLORIDE LEVEL 109 MMOL/L (98-107); CHOLESTEROL LEVEL 176 MG/DL (<200); CHOLESTEROL RISK RATIO 5.84 (<5); GLOMERULAR FILTRATION RATE > 60.0 (>58); GLUCOSE, FASTING 95 MG/DL (60-100); HDL CHOLESTEROL 30.1 MG/DL (>40); LDL CHOLESTEROL 99.1 MG/DL (<100); NON-HDL-C 145.9 MG/DL; POTASSIUM SERUM 4.2 MMOL/L (3.5-5.1); SODIUM LEVEL 144 MMOL/L (136-145); TOTAL PROTEIN 7.5 G/DL (5.7-8.2); TRIGLYCERIDES LEVEL 234 MG/DL (<150)
[2024-03-02 12:27] LABS: THYROID STIMULATING HORMONE 1.981 uIU/ML (0.55-4.78)
== END ==
LOC: M LAB REF 11:31
PROVIDERS: ATTEND Family Medicine Addiction Medicine
DX: I10 Essential (primary) hypertension (principal)